=== PATIENT | female | born 1945 | race Caucasian/White ===

== ENCOUNTER 2024-07-26 22:12 | Emergency (ER) | payer MEDICARE, OTHER ==
[~2024-07-26] VITALS: Ht 162.6 cm; Wt 99.8 kg
[2024-07-26 22:35] LABS: Source, Urine Clean Catch
[2024-07-26 22:44] LABS: Appearance, Urine Clear (Clear); Bilirubin, Urine Neg (Neg); Blood, Urine Neg (Neg); Glucose Qualitative, Urine Neg (Neg); Ketones, Urine Neg (Neg); Leukocyte Esterase, Urine Neg (Neg); Nitrite, Urine Neg (Neg); Protein, Urine Neg (Neg); Urobilinogen, Urine NORM (Normal); pH, Urine 6.5 (5.0-8.0)
[2024-07-26 22:45] LABS: Color, Urine Pale Yellow (P-Yellow)
[2024-07-26] MEDS ORDERED: Morphine Sulfate 4 MG/1 ML Injection IV ONE (22:45)
[2024-07-26] MEDS ORDERED: Ondansetron HCl 2 MG / ML 2ML Vial IV ONE (22:45)
[2024-07-26 22:54] LABS: BASOPHILS ABSOLUTE AUTO 0.07 K/mm3 (0.00-0.23); BASOPHILS PERCENT AUTO 1 % (0-2); EOSINOPHILS ABSOLUTE AUTO 0.32 K/mm3 (0.00-0.68); EOSINOPHILS PERCENT AUTO 3 % (0-6); Hematocrit 39.7 % (33.0-51.0); Hemoglobin 13.4 g/dL (11.5-16.0); IMMATURE GRAN ABSOLUTE AUTO 0.04 K/mm3 (0.00-0.10); IMMATURE GRAN PERCENT AUTO 0 % (0-1); LYMPHOCYTES ABSOLUTE AUTO 2.61 K/mm3 (0.84-5.20); LYMPHOCYTES PERCENT AUTO 25 % (21-46); MONOCYTES ABSOLUTE AUTO 0.59 K/mm3 (0.16-1.47); MONOCYTES PERCENT AUTO 6 % (4-13); Mean Corpuscular HGB Conc 33.8 g/dL (31.5-36.5); Mean Corpuscular Volume 89 fL (80-100); Mean Platelet Volume 8.2 fL (9.1-12.4); NEUTROPHILS ABSOLUTE AUTO 6.89 K/mm3 (1.96-9.15); NEUTROPHILS PERCENT AUTO 66 % (41-73); Platelet Count 101 K/mm3 (150-400); RDW Coefficient Variation 13.1 % (11.7-14.2); RDW Standard Deviation 42.9 fL (35.1-46.3); Red Blood Cell Count 4.47 M/mm3 (3.80-5.20); White Blood Cell Count 10.52 K/mm3 (4.00-11.30)
[2024-07-26 23:10] LABS: Albumin, Blood 3.6 g/dL (3.4-5.0); Albumin/Globulin Ratio 0.8 (0.8-1.8); Bilirubin, Total 0.3 mg/dL (0.1-1.0); Bun/Creatinine Ratio 27.1 (12.0-20.0); Calcium, Blood 9.5 mg/dL (8.5-10.1); Creatinine, Blood 0.81 mg/dL (0.40-1.00); Globulin, Blood 4.3 g/dL (2.2-4.0); Potassium, Blood 4.2 mmol/L (3.5-5.5); Total Protein, Blood 7.9 g/dL (6.4-8.2)
[2024-07-27] MEDS ORDERED: MIRALAX17 GM PO (00:59)
[2024-07-27] MEDS ORDERED: ONDA4 PO (00:59)
[2024-07-27] MEDS ORDERED: ACET500 PO (00:59)
[2024-07-27] MEDS ORDERED: DICY20 PO (00:59)
[2024-07-27] MEDS ORDERED: Ketorolac Tromethamine 15mg Vial IV ONE (01:00)
[2024-07-27] MEDS ORDERED: Acetaminophen 500 MG Tab PO ONE (01:00)
== END 2024-07-27 01:16 | disposition home or self-care (01) ==
LOC: ER 22:12
PROVIDERS: Student in an Organized Health Care Education/Training Program
DX: N13.2 Hydronephrosis with renal and ureteral calculous obstruction (principal); K59.00 Constipation, unspecified
CPT/HCPCS: 74177; 80053; 81003; 83690; 85025; 93005; 93010; 96374-59; 99284-25; A9270; J1885; J2405; Q9967

== ENCOUNTER 2025-02-15 11:56 | Inpatient (IN) | payer MEDICARE, OTHER ==
[~2025-02-15] VITALS: Ht 162.6 cm; Wt 99.8 kg
[~2025-02-15 11:56] MED LIST: ACET500 PO; DICY20 PO; MIRALAX17 GM PO; ONDA4 PO
[2025-02-15 12:49] LABS: pH Blood Venous 7.36 (7.34-7.37)
[2025-02-15 12:58] LABS: BASOPHILS ABSOLUTE AUTO 0.05 K/mm3 (0.00-0.23); BASOPHILS PERCENT AUTO 1 % (0-2); EOSINOPHILS ABSOLUTE AUTO 0.21 K/mm3 (0.00-0.68); EOSINOPHILS PERCENT AUTO 3 % (0-6); Hematocrit 36.8 % (33.0-51.0); Hemoglobin 12.4 g/dL (11.5-16.0); IMMATURE GRAN ABSOLUTE AUTO 0.03 K/mm3 (0.00-0.10); IMMATURE GRAN PERCENT AUTO 0 % (0-1); LYMPHOCYTES ABSOLUTE AUTO 1.38 K/mm3 (0.84-5.20); LYMPHOCYTES PERCENT AUTO 19 % (21-46); MONOCYTES ABSOLUTE AUTO 0.47 K/mm3 (0.16-1.47); MONOCYTES PERCENT AUTO 6 % (4-13); Mean Corpuscular HGB Conc 33.7 g/dL (31.5-36.5); Mean Corpuscular Volume 89 fL (80-100); NEUTROPHILS ABSOLUTE AUTO 5.20 K/mm3 (1.96-9.15); NEUTROPHILS PERCENT AUTO 71 % (41-73); NRBC ABSOLUTE 0.00 K/mm3 (0.00-0.02); NRBC Auto 0.0 /100 WBC (0.0-0.2); Platelet Count 88 K/mm3 (150-400); RDW Coefficient Variation 13.3 % (11.7-14.2); RDW Standard Deviation 43.8 fL (35.1-46.3)
[2025-02-15 13:21] LABS: Ethanol (Alcohol), Blood, Med <3 mg/dL; Salicylate 2.1 mg/dL (2.8-20.0)
[2025-02-15 13:23] LABS: Source, Urine Fem Cath
[2025-02-15 13:26] LABS: Acetaminophen, Random <2.0 ug/mL (10.0-30.0); Alanine Aminotransfer (ALT/SGP 21 U/L (12-78); Albumin, Blood 3.3 g/dL (3.4-5.0); Albumin/Globulin Ratio 0.9 (0.8-1.8); Anion Gap 6 mmol/L (3-11); Aspartate Aminotrans (AST/SGOT 14 U/L (12-37); Bilirubin, Total 0.4 mg/dL (0.1-1.0); Blood Urea Nitrogen 25 mg/dL (8-24); CO2, Blood 27 mmol/L (21-32); Calcium, Blood 8.6 mg/dL (8.5-10.1); Chloride, Blood 109 mmol/L (98-108); Creatinine, Blood 0.90 mg/dL (0.40-1.00); Globulin, Blood 3.6 g/dL (2.2-4.0); Glucose, Blood 105 mg/dL (70-99); Potassium, Blood 4.0 mmol/L (3.5-5.5); Sodium, Blood 138 mmol/L (136-145); Total Protein, Blood 6.9 g/dL (6.4-8.2)
[2025-02-15 13:29] LABS: Bilirubin, Urine Neg (Neg); Glucose Qualitative, Urine Neg (Neg); Ketones, Urine Neg (Neg); Leukocyte Esterase, Urine Neg (Neg); Protein, Urine Neg (Neg); Specific Gravity, Urine 1.010 (1.003-1.022); Urobilinogen, Urine NORM (Normal)
[2025-02-15 13:36] LABS: Color, Urine Pale Yellow (P-Yellow)
[2025-02-15 13:40] LABS: U Amphetamine Screen Not Detected; U Barbituate Screen Not Detected; U Benzodiazapine Screen Not Detected; U Buprenorphine Screen Not Detected; U Cannabinoids Screen Not Detected; U Cocaine Screen Not Detected; U Methadone Screen Not Detected; U Methamphetamine Screen Not Detected; U Opiates Screen Not Detected; U Oxycodone Screen Not Detected; U Phencyclidine Screen Not Detected
[2025-02-15] MEDS ORDERED: NS 1,000 ML IV SCH (17:20)
[2025-02-15] MEDS ORDERED: Ondansetron HCl 2 MG / ML 2ML Vial IV PRN (17:20)
[2025-02-15 19:45] VITALS: BP 136/62
[2025-02-15] MEDS ORDERED: ESCI20 PO (20:04)
[2025-02-15] MEDS ORDERED: LEVSOD25 PO (20:06)
[2025-02-15 23:26] VITALS: BP 117/47
[2025-02-16] VITALS (7 sets, daily range): BP systolic 111–149; BP diastolic 52–75
[2025-02-16] MEDS ORDERED: ESCI10 PO (02:20)
[2025-02-16] MEDS ORDERED: LEVSOD100 PO (02:21)
[2025-02-16] MEDS ORDERED: OLME20 PO (02:22)
[2025-02-16] MEDS ORDERED: ANASTROZOLE1 M7 PO (02:24)
[2025-02-16 05:57] LABS: BASOPHILS ABSOLUTE AUTO 0.04 K/mm3 (0.00-0.23); BASOPHILS PERCENT AUTO 1 % (0-2); EOSINOPHILS ABSOLUTE AUTO 0.28 K/mm3 (0.00-0.68); EOSINOPHILS PERCENT AUTO 4 % (0-6); Hematocrit 35.2 % (33.0-51.0); Hemoglobin 11.9 g/dL (11.5-16.0); IMMATURE GRAN ABSOLUTE AUTO 0.02 K/mm3 (0.00-0.10); IMMATURE GRAN PERCENT AUTO 0 % (0-1); LYMPHOCYTES ABSOLUTE AUTO 1.70 K/mm3 (0.84-5.20); LYMPHOCYTES PERCENT AUTO 26 % (21-46); MONOCYTES ABSOLUTE AUTO 0.39 K/mm3 (0.16-1.47); MONOCYTES PERCENT AUTO 6 % (4-13); Mean Corpuscular HGB Conc 33.8 g/dL (31.5-36.5); Mean Corpuscular Volume 90 fL (80-100); NEUTROPHILS ABSOLUTE AUTO 4.07 K/mm3 (1.96-9.15); NEUTROPHILS PERCENT AUTO 63 % (41-73); NRBC ABSOLUTE 0.00 K/mm3 (0.00-0.02); NRBC Auto 0.0 /100 WBC (0.0-0.2); Platelet Count 79 K/mm3 (150-400); RDW Coefficient Variation 13.4 % (11.7-14.2); RDW Standard Deviation 44.0 fL (35.1-46.3)
[2025-02-16 06:34] LABS: Anion Gap 9.0 mmol/L (3-11); Blood Urea Nitrogen 18.0 mg/dL (8-24); CO2, Blood 24.0 mmol/L (21-32); Calcium, Blood 8.3 mg/dL (8.5-10.1); Chloride, Blood 111.0 mmol/L (98-108); Creatinine, Blood 0.84 mg/dL (0.40-1.00); Glucose, Blood 90.0 mg/dL (70-99); Potassium, Blood 3.7 mmol/L (3.5-5.5); Sodium, Blood 140.0 mmol/L (136-145)
--- NOTE | 2025-02-16 06:47 | NUR ---
ADMISSION AND SHIFT SUMMARY ASSUMED CARE AT 1945. A/Ox4, VSS ON RA. TELE IN PLACE, NSR. NPO DIET; SWALLOW SCREEN FAILED. MRI CHECKLIST FAXED. UP TO RESTROOM WITH WALKER AND SBA. PT REPORTS HEAD/NECK PAIN, DECLINED MEDICATION. NO ACUTE CHANGES OVERNIGHT.
[2025-02-16] MEDS ORDERED: Polyethylene Glycol 3350 17 gm PO SCH (09:00)
[2025-02-16] MEDS ORDERED: Enoxaparin 40 MG/0.4 ML SYR SC SCH (09:00)
[2025-02-16] MEDS ORDERED: FentaNYL Citrate 50 MCG/ML 2 ML Injection IV PRN (13:50)
--- NOTE | 2025-02-16 18:47 | NUR ---
PATIENT WORKING WITH PT OT THIS SHIFT, INITIAL EVALS. A/O X4, EXTREMELY DROWSY IN THE AM, CLEARED SHIFT WENT ON. L SIDE FACIAL DROOP, L ARM UNCOORDINATED AND WEAK, L LEG WEAKNESS. BEDSIDE SWALLOW EVAL ATTEMPTED X2, REQUIRED CUEING FOR STRONG SWALLOW ON YOGURT AND APPLESAUCE, POCKETING ON L SIDE BUT ABLE TO CLEAR. NOT TOLERATING THIN LIQUIDS AT THIS TIME, COUGHING AND CHOKING. NPO MAINTAINED. ABLE TO GET UP ONE ASSIST WITH WALKER TO BATHROOM.
[2025-02-17 00:15] VITALS: BP 149/61
[2025-02-17 04:50] VITALS: BP 116/52
--- NOTE | 2025-02-17 05:50 | NUR ---
SHIFT SUMMARY; PT A/OX4, ONE ASSIST W/ FWW TO THE RESTROOM. L SIDED DECIFIT SEEN EFFECTING ARM AND LEG, W/ MILD L SIDED FACIAL DROOP AND SLIGHTLY MUMMBLED SPEECH. MODERATE WEAKNESS SEEN IN L ARM AND L LEG. PT CONTINENT OF URINE AND BMS. PT IS TO REMAIN NPO DUE TO SWALLOWING DIFFICULTIES PER SHIFT REPORT FROM PREVIOUS NURSE. AWAITING EVAL FROM SPEECH THERAPY. AT AROUND 0100, PT BEGAN EXPERIENCING NAUSEA AND SOB OBSERVED WHEN AMBULATING TO THE RESTROOM. OFFERED ZOFRAN IV TO PT PER EMAR, HOWEVER PT DENIED MED. CBG PERFORMED TO ASSESS FOR HYPOGLYCEMIA- RESULTS WNL. PT ON TELE WITH NSR @ 65 BPM. VSS, HOWEVER PT MILDLY HYPERTENSIVE. CALL LIGHT W/IN REACH W/ BED IN LOW POSITION.
[2025-02-17 06:38] LABS: Anion Gap 7 mmol/L (3-11); Blood Urea Nitrogen 15 mg/dL (8-24); CHOL/HDL RATIO 3.1; CO2, Blood 27 mmol/L (21-32); Calcium, Blood 7.9 mg/dL (8.5-10.1); Chloride, Blood 110 mmol/L (98-108); Cholesterol 216 mg/dL (50-200); Creatinine, Blood 0.78 mg/dL (0.40-1.00); Glucose, Blood 85 mg/dL (70-99); HDL Cholesterol 69 mg/dL (>39); LDL/HDL RATIO 1.9; Low Density Lipoprotein Chol 129 mg/dL (0-110); Potassium, Blood 3.7 mmol/L (3.5-5.5); Sodium, Blood 140 mmol/L (136-145); Triglycerides 91 mg/dL (30-160); Very Low Density Lipoprot Chol 18 mg/dL (6-32)
[2025-02-17 07:52] VITALS: BP 132/61
[2025-02-17] MEDS ORDERED: MULVITA PO (10:28)
[2025-02-17] MEDS ORDERED: VITAMIN D350 MC3 PO (10:28)
[2025-02-17] MEDS ORDERED: ALBU90OI INH (10:29)
[2025-02-17] MEDS ORDERED: FISH OIL 1,2001 EAC4 PO (10:32)
[2025-02-17 15:36] VITALS: BP 107/54
--- NOTE | 2025-02-17 17:54 | NUR ---
SHIFT SUMMARY PATIENT IS A&OX4. IS ABLE TO MAKE NEEDS KNOWN. LEFT SIDE FACIAL DROOP IMPROVING. AMBULATES WITH FWW TO BATHROOM. LEFT SIDE DEFICIT. ECHO COMPLETED THIS EVENING. WILL DISCHARGE HOME WITH HOME HEALTH ORDER. HAS GOOD SUPPORT SYSTEM WITH SON AND [id number]. WAS CHANGED TO SOFT DIET. TAKING PILLS WHOLE WITH APPLE SAUCE. LIQUIDS ARE NECTAR THICK. CURRENLTY SITTING UP IN BED HAVING DINNER AND VISITING WITH SON. BED IN LOWEST POSITION. CALL LIGHT IN REACH.
[2025-02-17] MEDS ORDERED: ACET500 PO (19:30)
[2025-02-17] MEDS ORDERED: ASPI81CH PO (19:31)
[2025-02-17] MEDS ORDERED: ATOR80 PO (19:32)
[2025-02-17] MEDS ORDERED: CLOP75 PO (19:33)
--- NOTE | 2025-02-17 21:09 | NUR ---
DISCHARGE SUMMARY PATIENT IS ALERT AND ORIENTED. PATIENT WAS READ DISCHARGE ORDERS. MEDICATIONS FAXED TO [facility]. PATIENTS FAMILY WAS PRESENT FOR DISCHARGE INSTRUCTIONS. PATIENT AND FAMILY AGREED WITH DISCHARGE INSTRUCTIONS. WOLF WHEELED PATIENT OUT WITH FAMILY TO PATIENTS FAMILIES VEHICLE.
== END 2025-02-17 21:03 | disposition home or self-care (01) | DRG 65 ==
LOC: ER 11:56 → ERHOLD 11:57 → MEDS 11:57 → ER 11:57 → MEDS 11:57 → ERHOLD 19:45 → MEDS 02-16 15:12 → ERHOLD 02-16 15:12 → MEDS 02-16 21:47
PROVIDERS: Emergency Medicine; ADMIT Internal Medicine
DX: I63.89 Other cerebral infarction (principal); E87.1 Hypo-osmolality and hyponatremia; E03.9 Hypothyroidism, unspecified; R47.1 Dysarthria and anarthria; R47.81 Slurred speech; R29.702 NIHSS score 2; F32.A Depression, unspecified; E66.9 Obesity, unspecified; I11.0 Hypertensive heart disease with heart failure; I50.9 Heart failure, unspecified; D69.6 Thrombocytopenia, unspecified; Z60.2 Problems related to living alone; R20.0 Anesthesia of skin; G83.24 Monoplegia of upper limb affecting left nondominant side; Z90.710 Acquired absence of both cervix and uterus; Z90.49 Acquired absence of other specified parts of digestive tract; Z79.899 Other long term (current) drug therapy; Z98.891 History of uterine scar from previous surgery; Z98.890 Other specified postprocedural states; Z88.1 Allergy status to other antibiotic agents; Z68.37 Body mass index [BMI] 37.0-37.9, adult
CPT/HCPCS: 36415; 70450; 70551; 71046; 80048; 80053; 80061; 80320; 81003; 82140; 82306; 82803; 82947; 83605; 83880; 84145; 84439; 84443; 84481; 84484; 85025; 92610; 93005; 93010; 93306; 93880; 97110; 97112; 97161; 97165; 97530; 97535; 99285-25; A6590; A9270; G0378; G0480; J1650; J7030